=== PATIENT | male | born 2000 | race Caucasian/White ===

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

== ENCOUNTER 2023-07-01 13:42 | Emergency (ER) | payer OTHER ==
[~2023-07-01] VITALS: Ht 170.2 cm; Wt 90.7 kg
[2023-07-01] MEDS ORDERED: METOPROLOL SUCC25 MG PO (13:57)
[2023-07-01] MEDS ORDERED: HYDROXYZINE HCL25 MG PO (13:57)
[2023-07-01 14:30] VITALS: BP 148/60
== END 2023-07-01 14:31 | disposition home or self-care (01) ==
LOC: ED 13:42
DX: S61.411A Laceration without foreign body of right hand, initial encounter (principal); W26.8XXA Contact with other sharp object(s), not elsewhere classified, initial encounter; Z79.899 Other long term (current) drug therapy
CPT/HCPCS: 12001; 99282-25